=== PATIENT | female | born 1980 | race Caucasian/White ===

== ENCOUNTER 2018-12-26 10:55 | Emergency (ER) | payer OTHER ==
[2018-12-26 11:45] VITALS: BP 141/104
--- NOTE | 2018-12-26 13:13 | ED ---
Allergic Reaction/Systemic - HPI Summary HPI Summary: Pt. is a 38 y.o male who presents to the ER for evaluation of possible allergic rxn to dandruff shampoo. Pt. states that yesterday in the shower she accidentally squeezed dandruff shampoo into her hand instead of her regular shampoo. Pt. state shampoo accidentally got into her mouth. Pt. states she then felt tingling and swelling to lower lip and tongue. Pt. states she took a dose of Benadryl. Pt. states she felt some slight SOB. Pt. states her sxs were mildly still present today and called her PCP and was informed to come to the ER. Pt. notes having sensitivity to certain medications. Sxs are mild in severity. No associated sxs of rash, CP, SOB, facial swelling. No current modifying factors. - History of Current Complaint Chief Complaint: EDAllergicReaction Time Seen by Provider: 12/26/18 11:16 Hx Obtained From: Patient Pain Intensity: 0 Pain Scale Used: 0-10 Numeric - Allergies/Home Medications Allergies/Adverse Reactions: Allergies Allergy/AdvReac Type Severity Reaction Status Date / Time ibuprofen Allergy Swelling Verified 12/26/18 11:03 Of Face,Lips,& Throat ketoconazole [From Nizoral] Allergy Swelling Verified 12/26/18 11:03 Of Face,Lips,& Throat PMH/Surg Hx/FS Hx/Imm Hx Previously Healthy: Yes Infectious Disease History: No Infectious Disease History: Denies: Traveled Outside the [place] in Last 30 Days - Family History Known Family History: Positive: Non-Contributory - Social History Occupation: Unemployed Lives: With Family Alcohol Use: None Substance Use Type: Reports: None Smoking Status (MU): Never Smoked Tobacco Review of Systems Positive: Other - swelling to tongue. Cardiovascular: Negative Respiratory: Negative Gastrointestinal: Negative Negative: Vomiting, Nausea Skin: Negative Negative: Rash All Other Systems Reviewed And Are Negative: Yes Physical Exam Triage Information Reviewed: Yes Vital Signs On Initial Exam: Initial Vitals Temp Pulse Resp BP Pulse Ox 98.4 F 125 16 127/101 98 12/26/18 11:04 12/26/18 11:04 12/26/18 11:04 12/26/18 11:04 12/26/18 11:04 Vital Signs Reviewed: Yes Appearance: Positive: Well-Appearing - Pt. sitting up in bed in NAD. Talkative. Anxious but pleasant. Skin: Positive: Warm, Dry Head/Face: Positive: Normal Head/Face Inspection Eyes: Positive: Normal, EOMI, ELSIE, Conjunctiva Clear ENT: Positive: Other - Oral pharynx is pantent without tonsilar or uvula edema. No muffled voice or pooling of secretions. I do appreciate any edema to tonuge or lips. Neck: Positive: Supple, Nontender Respiratory/Lung Sounds: Positive: Clear to Auscultation, Breath Sounds Present. Negative: Wheezes Cardiovascular: Positive: Normal, RRR Neurological: Positive: Normal, CN Intact II-III Psychiatric: Positive: Affect/Mood Appropriate Diagnostics - Vital Signs Vital Signs Temp Pulse Resp BP Pulse Ox 12/26/18 11:42 98.6 F 126 16 141/104 98 12/26/18 11:17 20 12/26/18 11:16 127 100 12/26/18 11:14 132 156/109 99 12/26/18 11:04 98.4 F 125 16 127/101 98 - Laboratory Lab Statement: Any lab studies that have been ordered have been reviewed, and results considered in the medical decision making process. Allergic Reaction Course/Dx - Course Course Of Treatment: Pt. presenting for evaluation of possible allergic rxn to dandruff shampoo. Exam is unremarkable. Pt. notes she feels her tongue is a bit swollen. VS stable. Offered a dose of decadron in ed which pt. declined secondary to possible side effects. Advised can continue benadryl at home if needed. As well as pepcid. Will f.u with PCP if needed and return to ER if sxs change or worsen. - Diagnoses Provider Diagnoses: Exposure to chemical irritant, Contact allergic reaction Discharge - Sign-Out/Discharge Documenting (check all that apply): Patient Departure Patient Received Moderate/Deep Sedation with Procedure: No - Discharge Plan Condition: Good Disposition: HOME Patient Education Materials: Allergies (ED) Referrals: Deacon Blanco MD [Primary Care Provider] - Additional Instructions: Follow up with PCP if needed Can take benadryl every 6 hours if needed Can also take over the counter pepcid Avoid known irritants Return to ER if symptoms change or worsen - Billing Disposition and Condition Condition: GOOD Disposition: Home
== END 2018-12-26 11:42 | disposition home or self-care (01) ==
LOC: ED 10:55
DX: Z77.098 Contact with and (suspected) exposure to other hazardous, chiefly nonmedicinal, chemicals (principal); T78.49XA Other allergy, initial encounter; X58.XXXA Exposure to other specified factors, initial encounter; Z88.6 Allergy status to analgesic agent; Z88.8 Allergy status to other drugs, medicaments and biological substances
CPT/HCPCS: 99282

== ENCOUNTER 2019-04-20 04:43 | Emergency (ER) | payer OTHER ==
[2019-04-20] MEDS ORDERED: LORazepam TAB(*) 1 MG PO ONE (05:09)
--- NOTE | 2019-04-20 05:12 | ED ---
Complex/Multi-Sys Presentation - HPI Summary HPI Summary: 38 year old F female presenting to [facility] with a chief complaint of burning and dryness in throat since 129, 04/20/19. [place] [address]/20/19 after being off due to being frozen. Patient reports that upon it turning on she got up and scraped her right eye with her finger nail after smelling an odd sweet aroma in the air that she thought was strange for her apartment. Patient reports she then opened the window trying to get some ventilation after which a janet came up from the vent that she breathed in. Patient reports the air she breathed in from the vent burned her throat as it went down and reports that she drank 3 bottles of water trying to get rid of the burning for 1 hour. Patient reports she called AC unit company who thought she could have inhaled Freon but they could not tell. Patient reports she then started getting a LEIGH possibly due to the stress and anxiety and a stomach ache due to irritable bowel syndrome. Patient reports she currently feels dry in her throat but no burning like what she felt at onset. Patient reports she also currently feels panicky. Patient denies asthma. Symptoms aggravated by nothing. Symptoms alleviated by nothing. Patient reports she recently saw an eye doctor 2 days ago due to boiling water in her left eye and that the past month she has been sick with what is thought to be tonsillitis. Patient reports she has a central old AC unit in her apartment. - History Of Current Complaint Chief Complaint: EDUpperRespComplaint Time Seen by Provider: 04/20/19 04:53 Hx Obtained From: Patient Onset/Duration: Sudden Onset, Lasting Hours, Still Present Aggravating Factor(s): nothing Alleviating Factor(s): nothing Associated Signs And Symptoms: Positive: Headache, Abdominal Pain, Other - anxiety - Allergies/Home Medications Allergies/Adverse Reactions: Allergies Allergy/AdvReac Type Severity Reaction Status Date / Time ibuprofen Allergy Swelling Verified 04/20/19 04:48 Of Face,Lips,& Throat ketoconazole [From Nizoral] Allergy Swelling Verified 04/20/19 04:48 Of Face,Lips,& Throat PMH/Surg Hx/FS Hx/Imm Hx Endocrine/Hematology History: Denies: Hx Anticoagulant Therapy, Hx Diabetes Respiratory History: Denies: Hx Asthma Sensory History: Denies: Hx Contacts or Glasses Opthamlomology History: Denies: Hx Contacts or Glasses - Surgical History Surgical History: None Surgery Procedure, Year, and Place: None Infectious Disease History: No Infectious Disease History: Denies: Traveled Outside the [place] in Last 30 Days - Family History Known Family History: Positive: Other - Asthma , Non-Contributory - Social History Alcohol Use: None Hx Substance Use: No Substance Use Type: Reports: None Hx Tobacco Use: No Smoking Status (MU): Never Smoked Tobacco Review of Systems ENT: Other - throat burning and dryness Positive: Abdominal Pain Positive: Headache Positive: Anxious All Other Systems Reviewed And Are Negative: Yes Physical Exam - Summary Physical Exam Summary: Appearance: Well-appearing, Well-nourished, lying in bed comfortably Skin: Warm, dry, no obvious rash Eyes: sclera anicteric, no conjunctival pallor ENT: mucous membranes moist, pharynx appears normal Neck: Supple, nontender Respiratory: Clear to auscultation, no signs of respiratory distress Cardiovascular: Normal S1, S2. No murmurs. Normal distal pulses in tibial and radial bilaterally. Abdomen: Soft, nontender, normal active bowel sounds present Musculoskeletal: Normal, Strength/ROM Intact Neurological: A&Ox3, awake and alert, mentation is normal, speech is fluent and appropriate Psychiatric: affect is normal, does not appear anxious or depressed Triage Information Reviewed: Yes Vital Signs On Initial Exam: Initial Vitals Temp Pulse Resp BP Pulse Ox 97.4 F 115 18 150/95 100 04/20/19 04:46 04/20/19 04:46 04/20/19 04:46 04/20/19 04:46 04/20/19 04:46 Vital Signs Reviewed: Yes Diagnostics - Vital Signs Vital Signs Temp Pulse Resp BP Pulse Ox 04/20/19 04:46 97.4 F 115 18 150/95 100 - Laboratory Lab Statement: Any lab studies that have been ordered have been reviewed, and results considered in the medical decision making process. Complex Multi-Symp Course/Dx Course Of Treatment: 38 year old F female presenting to [facility] with a chief complaint of burning and dryness in throat since 129, 04/20/19. [place] [address]/20/19 after being off due to being frozen. Patient reports that upon it turning on she got up and scraped her right eye with her finger nail after smelling an odd sweet aroma in the air. Patient reports she then opened the window and a janet came up from the vent. Patient reports the air she breathed in from the vent burned her throat and reports that she drank 3 bottles of water trying to get rid of the burning for 1 hour. Patient reports she then started getting a LEIGH possibly due to the stress and anxiety attack and a stomach ache irritable bowel syndrome. Patient reports she currently feels dry in her throat but no burning like what she felt at onset. Patient reports she also currently feels panicky. Physical exam reveals no abnormalities. Physician discusses discharge with patient who agrees to discharge. Patient will be discharged and follow up with primary care physician as needed. - Diagnoses Provider Diagnoses: Exposure to chemical inhalation Discharge - Sign-Out/Discharge Documenting (check all that apply): Patient Departure - discharge Patient Received Moderate/Deep Sedation with Procedure: No - Discharge Plan Condition: Stable Disposition: HOME Referrals: Deacon Blanco MD [Primary Care Provider] - If Needed Additional Instructions: It doesn't look like this exposure caused any serious compromise to you. You should feel better tomorrow. - Billing Disposition and Condition Condition: STABLE Disposition: Home - Attestation Statements Document Initiated by Leniibe: Yes Documenting Scribe: Yue Paniagua Provider For Whom Audi is Documenting (Include Credential): Dr. Praveen Pennington MD Scribe Attestation: Yue Nunez, scribed for Dr. Praveen Pennington MD on 04/20/19 at 0546. Scribe Documentation Reviewed: Yes Provider Attestation: The documentation as recorded by the Yue brantley accurately reflects the service I personally performed and the decisions made by me, Dr. Praveen Pennington MD Status of Scribe Document: Viewed
[2019-04-20 05:26] VITALS: BP 122/87
== END 2019-04-20 05:23 | disposition home or self-care (01) ==
LOC: ED 04:43
DX: T53.5X1A Toxic effect of chlorofluorocarbons, accidental (unintentional), initial encounter (principal); R07.0 Pain in throat; R51 Headache; R10.9 Unspecified abdominal pain; F41.9 Anxiety disorder, unspecified; Y92.039 Unspecified place in apartment as the place of occurrence of the external cause; Z88.6 Allergy status to analgesic agent; Z88.8 Allergy status to other drugs, medicaments and biological substances
CPT/HCPCS: 99282; A9270-GY